=== PATIENT | male | born 1960 | race Caucasian/White ===

== ENCOUNTER → 2017-08-09 | Outpatient (CLI) | payer BC ==
[~2017-08-09] MED LIST: CALC150C PO; MULT-506 PO; OMEG10007 PO; SIMV10TA2 PO
== END | disposition home or self-care (01) ==
LOC: C.RDSM 13:22
PROVIDERS: ATTEND Physical Medicine & Rehabilitation Sports Medicine
DX: M25.532 Pain in left wrist (principal)

== ENCOUNTER → 2017-08-15 | Day surgery (SDC) | payer BC ==
[2017-08-09 14:56] VITALS: Ht 172.7 cm; Wt 84.1 kg
[~2017-08-15] VITALS: Ht 172.7 cm; Wt 84.1 kg
[~2017-08-15] MED LIST changes: +ATROPINE SULFATE 0.1 MG/ML 5ML SYR IV PRN; +BUPIVACAINE 0.5 % 5 MG/1 ML MPF 30ML VIAL ONE; +BUPIVACAINE/EPINEPHRINE 0.5% MPF 1:200,000 30 ML VIAL ONE; +CEFAZOLIN 2000 MG/60 ML D5W IV SCH; +DEXAMETHASONE SOD INJ 4 MG/ML VIAL ONE; +EpHEDrine SULFATE INJ 50 MG/ML AMP IV PRN; +FENTANYL CITRATE INJ 50 MCG/1 ML 2 ML VIAL IV PRN; +FENTANYL CITRATE INJ 50 MCG/1 ML 2 ML VIAL ONE; +HYDR-5688 PO; +LACTATED RINGER'S 1000ML 1,000 ML IV SCH; +LIDOCAINE HCL 2% 2 ML VIAL (20MG/ML) ONE; +LIDOCAINE/EPINEPHRINE 1% INJ 50 ML VIAL ONE; +MIDAZOLAM HCL 1 MG/ML 2ML VIAL ONE; +MoRPHine SULFATE 2 MG/ML CARP IV PRN; +MoRPHine SULFATE 4 MG/ML 1 ML CARP\\VIAL IV PRN; +ONDANSETRON INJ 2 MG/ML 2 ML VIAL IV PRN; +ONDANSETRON INJ 2 MG/ML 2 ML VIAL ONE; +OXYCODONE/ACETAMINOPHEN 5-325 TAB PO PRN; +PROMETHAZINE HCL INJ 6.25 MG in SODIUM CHLORIDE 0.9% 50ML 50 ML IV PRN; +PROPOFOL IV EMULSION 10 MG/ML 20 ML VIAL IV ONE; +SODIUM CHLORIDE 0.9% 1000ML 1,000 ML IV SCH; +SUCCINYLCHOLINE CHLORIDE 20 MG/ML 10 ML VIAL IV ONE
--- NOTE | 2017-08-15 07:04 | History & Physical Bridge Note ---
H&P Re-Evaluation Bridge Note: I have examined the patient, reviewed the History & Physical and in the interval since the performance of the History & Physical I have noted the following changes of clinical significance: No changes noted
--- NOTE | 2017-08-15 08:55 | Discharge Instructions-SurgCtr ---
Discharge Instructions Date of Service Aug 15, 2017. Visit Reason for Visit: Left Wrist Volar Ganglion Cyst Discharge Discharge Diagnosis / Problem: left wrist volar ganglion cyst Discharge Goals Goal(s): Decrease discomfort, Improve function, Increase independence Activity Recommendations Activity Limitations: per Instructions/Follow-up section Weightbearing Status: Left non-weightbearing Anesthesia . Post Anesthesia Instructions: If you have had General Anesthesia or IV Sedation: * Do not drive today. * Resume driving when surgeon permits. * Do not make important decisions or sign legal documents today. * Call surgeon for: 1. Temperature elevations greater than 101 degrees F. 2. Uncontrollable pain. 3. Excessive bleeding. 4. Persistent nausea and vomiting. 5. Medication intolerance (nausea, vomiting or rash). * For nausea and vomiting use only clear liquids such as: tea, soda, bouillon until nausea subsides, then gradually increase diet as tolerated. * If you have any concerns or questions, call your surgeon's office. If physician is unavailable and it is an emergency, call 911 or go to the nearest emergency room. . Instructions / Follow-Up Instructions / Follow-Up DIET: * Resume previous diet. MEDICATIONS: * Please take your prescriptions as instructed at your pre-op appointment and/ or see medication discharge instructions listed above. * If concerns develop, call your physician's office at . SPECIAL CARE INSTRUCTIONS: * Ice to left wrist as needed for pain and swelling * Elevate left wrist as needed for pain and swelling above your heart. * Keep dressing clean, dry, intact until your follow-up appointment. * Allowed to do range of motion left fingers and wrist as tolerated. * No pushing, pulling, or lifting left hand. Able to use left hand for light daily activities as tolerated. * Your surgical extremity may be discolored due to prepping agents used on the skin. A bluish-green tint is a normal variant and should not cause alarm. Call your doctor at [phone] if: * Temperature above 101 degrees * Pain not relieved by pain medicine ordered * There is increased drainage or redness from any incision * You have any unanswered questions, problems or concerns. FOLLOW UP VISIT: * If not already scheduled, please call the office at to schedule a follow-up appointment. * You have a follow-up appointment at [facility] orthopedics with Rafaela Hopkins PAC on 08/19/2017 at 7:45 AM. Diet Recommendations Home Diet: no limitations, resume previous diet Procedures Procedures Performed: Left Wrist Ganglion Cyst Excision Pending Studies Studies pending at discharge: no Medical Emergencies . Who to Call and When: Medical Emergencies: If at any time you feel your situation is an emergency, please call 911 immediately. . Non-Emergent Contact Non-Emergency issues call your: Surgeon Call Non-Emergent contact if: temperature is above 101.5, your pain is not controlled, your pain is worsening, wound has increased drainage, wound has increased redness, wound has increased pain, you have any medication questions . . "Provider Documentation" section prepared by Rafaela Hopkins. . [place] Drug Monitoring Program Search Results: patient reviewed within database, no issues identified
--- NOTE | 2017-08-15 08:57 | [facility] Operative Report ---
Operative Report Operative Date Aug 15, 2017. Pre-Operative Diagnosis Left wrist volar ganglion cyst Post-Operative Diagnosis Same as pre-op Procedure(s) Performed Left Wrist Ganglion Cyst Excision Surgeon Dr. Jones Section Housekeeper Surgeon(s) Rafaela Hopkins PA-C Estimated Blood Loss 10 mL Findings Volar ganglion cyst left wrist Specimens A: Left wrist volar ganglion cyst Drains none Anesthesia Gen. Complication(s) None Disposition Recovery Room / PACU (stable) Indications Patient is a 57-year-old male who presented to our office with complaints of a cyst on his left wrist. His been ongoing for quite some time and worsening the last month or so. It Does cause pain when it's large. It does fluctuate in size. He wished to proceed with surgical excision. Risk and complications were discussed and informed consent was obtained. X-rays were taken preoperatively and showed no bony abnormality. Description of Procedure Patient was taken to the operating room and placed under general anesthesia. He was given 2 g of IV Ancef for surgical prophylaxis. Timeout was performed. He was prepped and draped in routine sterile fashion. I was present during the entire case, please see Dr. Jones's operative report for further detail. He was awakened and transferred to the recovery room in stable condition. I attest to the content of the Intraoperative Record and any orders documented therein. Any exceptions are noted below.
--- NOTE | 2017-08-15 09:03 | [facility] Operative Report ---
Operative Report Operative Date Aug 15, 2017. Pre-Operative Diagnosis Left wrist volar ganglion cyst Post-Operative Diagnosis Same as pre-op Procedure(s) Performed Left Wrist Ganglion Cyst Excision Surgeon Dr. Jones Associate Director Career Services Surgeon(s) Renetta MASON Estimated Blood Loss 10 mL Findings Volar ganglion cyst Specimens A: Left wrist volar ganglion cyst Drains none Anesthesia Gen. Complication(s) None Disposition Recovery Room / PACU Implants None Indications Patient is a 57-year-old gentleman with a symptomatic left wrist volar ganglion cyst. He has been apprised treatment options and wishes to have it surgically excised Description of Procedure Patient's identified as are full movement. He identified the left wrist as the operative site. I marked with my initials. Preoperative surgical timeout was performed. Informed consent was obtained. Preoperative dose of IV antibiotics was given. He was positioned supine on the OR table to tourniquet on the left arm and the left arm suspended on a hand table. A general anesthetic was administered. DVT prophylaxis was not indicated. The examination revealed a positive Pawel's test. Additionally he had a faintly palpable mass just radial to the radial artery just proximal to the wrist crease smaller than what he had preoperatively. The left upper extremity was prepped and draped in usual sterile fashion. The limb was exsanguinated with gravity and the tourniquet inflated turn 25 mmHg. Longitudinal incision was made just radial and paralleling the radial artery which had been marked out. The location the cyst was also marked out. The incision proceeded to the proximal wrist crease and then zigzagged ulnarly to the next crease. Blunt dissection was performed down to subcutaneous tissues. Transversing veins were electrocauterized. Cyst was identified just deep to the fascia. The fascia was incised over the radial artery. The radial artery and its veins were identified and dissected out proximally and distally. The bifurcation of the radial artery was identified. The deep branch which courses towards the first ray was identified and dissected out distally. The cyst was identified radial to the artery. It was densely adherent to the radial artery and required careful meticulous dissection from it in a blunt fashion. The cyst was also adherent to the fascia of the first dorsal compartment. This necessitated excision of the volar distal portion of the first dorsal compartment. These tendons were identified preserved and protected throughout the procedure. A complete first dorsal compartment release was not performed. Only about a centimeter where the cyst was adherent to this was incised and partially excised. The cyst was then dissected distally and appeared to have a stalk going to wards the volar radial carpal joint. This was traced down to the joint capsule and a 3-4 mm of joint capsule was carefully excised using a knife and [place] or. Articular cartilage was visualized. Another portion of the cyst appeared to course distally paralleling the course of the radial artery towards the anatomic snuffbox this was dissected out the distally in that direction and a small portion of the radial joint capsule overlying the radial scaphoid 3-4 mm in size was excised in a likewise fashion. Asst. cyst was removed and sent for specimen. The tourniquet was let down and meticulous hemostasis was performed. Lavage with 1% lidocaine with epinephrine and half percent Marcaine with epinephrine was performed along with injecting several cc in the skin at the conclusion of the operation. The hand pinked up very nicely capillary refill less than 2 seconds. There is palpable radial pulse with visual pulsatile flow within radial artery. There is no significant bleeding. The wound was irrigated with sterile saline and closed with interrupted 4-0 nylon sutures. A soft sterile dressing was applied. The patient would from anesthesia without difficulty and taken to recovery room in stable condition. Specimens were as mentioned above. Counts were correct in the case. Blood loss was minimal. At the conclusion operations both patient's informed her my findings in detail postoperative instructions were given. I'll be in for dressing change and a few days and likely will not require any formal physical therapy. I attest to the content of the Intraoperative Record and any orders documented therein. Any exceptions are noted below.
[2017-08-15 09:35] VITALS: TEMP 36.2
--- NOTE | 2017-08-15 09:36 | Anesthesia Progress Nt - [facility] ---
Anesthesia Post Op Note Date & Time Aug 15, 2017 at 09:35 Vital Signs Pain Intensity: 1 Vital Signs Past 12 Hours Date Time Temp Pulse Resp B/P (MAP) Pulse Ox O2 Delivery O2 Flow Rate FiO2 08/15/17 09:26 36.1 67 12 157/89 96 Room Air 08/15/17 09:25 157/89 08/15/17 09:24 71 16 08/15/17 09:24 72 16 95 08/15/17 09:20 144/90 08/15/17 09:19 74 13 96 08/15/17 09:19 75 13 08/15/17 09:15 147/93 08/15/17 09:14 75 19 96 08/15/17 09:14 75 19 08/15/17 09:10 140/101 08/15/17 09:09 76 13 98 08/15/17 09:09 76 13 08/15/17 09:05 134/80 08/15/17 09:04 80 11 98 08/15/17 09:04 80 11 08/15/17 09:01 137/90 08/15/17 08:59 83 14 100 08/15/17 08:59 84 14 08/15/17 08:55 121/81 08/15/17 08:54 80 12 100 08/15/17 08:54 82 12 08/15/17 08:50 141/91 08/15/17 08:49 86 20 08/15/17 08:49 36.0 80 16 134/80 99 Room Air 08/15/17 08:49 86 20 97 08/15/17 06:28 36.4 59 16 166/94 (118) 96 Room Air Notes Mental Status: alert / awake / arousable, participated in evaluation Pt Amnestic to Procedure: Yes Nausea / Vomiting: adequately controlled Pain: adequately controlled Airway Patency, RR, SpO2: stable & adequate BP & HR: stable & adequate Hydration State: stable & adequate Anesthetic Complications: no major complications apparent
[2017-08-15 10:00] VITALS: PULSE 72; O2SAT 96
[2017-08-15 10:04] VITALS: BP 165/97
== END | disposition home or self-care (01) ==
LOC: X.SURG 06:07
PROVIDERS: ATTEND Physical Medicine & Rehabilitation Sports Medicine
DX: M67.432 Ganglion, left wrist (principal); E78.00 Pure hypercholesterolemia, unspecified; Z87.442 Personal history of urinary calculi